=== PATIENT | male | born 1995 | race Caucasian/White ===

== ENCOUNTER → 2019-02-21 | Outpatient (CLI) | payer BC | LOC: BMCIMAGING 14:11 | PROVIDERS: ATTEND Internal Medicine | DX: R59.9 Enlarged lymph nodes, unspecified (principal) | CPT/HCPCS: 76536-PO ==

== ENCOUNTER → 2019-03-03 | Outpatient (CLI) | payer BC | LOC: BMCIMAGING 10:07 | PROVIDERS: ATTEND Internal Medicine | DX: Z03.89 Encounter for observation for other suspected diseases and conditions ruled out (principal) ==

== ENCOUNTER → 2019-04-17 | Outpatient (CLI) | payer BC | LOC: FIMAGING 09:29 ==

== ENCOUNTER → 2019-05-05 | Outpatient (CLI) | payer BC | LOC: FIMAGING 14:35 ==